=== PATIENT | female | born 1990 ===

== ENCOUNTER → 2025-04-19 | Outpatient (CLI) | payer OTHER ==
[2025-04-19 16:25] LABS: Anion Gap 4 mmol/L (3-11); Blood Urea Nitrogen 12 mg/dL (8-24); CHOL/HDL RATIO 3.1; CO2, Blood 24 mmol/L (21-32); Calcium, Blood 8.9 mg/dL (8.5-10.1); Chloride, Blood 108 mmol/L (98-108); Cholesterol 173 mg/dL (50-200); Creatinine, Blood 0.74 mg/dL (0.40-1.00); Glucose, Blood 97 mg/dL (70-99); HDL Cholesterol 56 mg/dL (>39); LDL/HDL RATIO 1.8; Low Density Lipoprotein Chol 98 mg/dL (0-110); Potassium, Blood 4.1 mmol/L (3.5-5.5); Sodium, Blood 132 mmol/L (136-145); Triglycerides 95 mg/dL (30-140); Very Low Density Lipoprot Chol 19 mg/dL (6-28)
== END | disposition home or self-care (01) ==
LOC: LAB 09:45 → LAB SHORT 09:45
PROVIDERS: Hospitalist
DX: Z13.1 Encounter for screening for diabetes mellitus (principal); Z13.220 Encounter for screening for lipoid disorders
CPT/HCPCS: 80048; 80061